=== PATIENT | male | born 1970 | race Caucasian/White ===

== ENCOUNTER 2017-07-06 07:21 | Inpatient (IN) | payer OTHER ==
[~2017-07-06] VITALS: Ht 175.3 cm; Wt 79.4 kg
[2017-07-06] MEDS ORDERED: NATURE'S BLEND F1 MG PO (07:39)
[2017-07-06] MEDS ORDERED: LASIX40 MG PO (07:40)
[2017-07-06] MEDS ORDERED: NITROSTAT0.4 MG SL (07:40)
[2017-07-06] MEDS ORDERED: XIFAXAN550 M1 PO (07:41)
[2017-07-06] MEDS ORDERED: GOOD SENSE OMEP20 MG PO (07:41)
[2017-07-06] MEDS ORDERED: SPIRONOLACTONE100 MG PO (07:41)
[2017-07-06] MEDS ORDERED: B-1100 MG PO (07:42)
[2017-07-06] MEDS ORDERED: CAPSAICIN0.075% TOP (07:44)
[2017-07-06 08:54] LABS: BASOPHIL % 0.3 % (0-2)
[2017-07-06 08:59] LABS: RED CELL DISTRIBUTION WIDTH 17.8 % (11.5-14.5)
[2017-07-06 09:03] LABS: CALCIUM 8.4 mg/dL (8.5-10.1); CARBON DIOXIDE 24.6 mmol/L (21-32); CHLORIDE SERUM 108 mmol/L (98-107); CREATININE SERUM 0.9 mg/dL (0.7-1.3); GFR1 > 60 mL/min; GLUCOSE SERUM 103 mg/dL (74-106); POTASSIUM SERUM 4.6 mmol/L (3.5-5.1); SODIUM SERUM 138 mmol/L (136-145)
[2017-07-06 09:08] LABS: ALKALINE PHOSPHATASE 119 U/L (46-116); ALT/SGPT 46 U/L (16-63); AST/SGOT 90 U/L (15-37); BILIRUBIN TOTAL 2.22 mg/dL (0.20-1.00); CHOLESTEROL 138 mg/dL (<200)
[2017-07-06 09:11] LABS: ALBUMIN 2.7 g/dL (3.4-5.0)
[2017-07-06 09:47] LABS: PLATELET COUNT 45 x10^3mcL (130-400)
[2017-07-06 11:12] VITALS: BP 119/53
[2017-07-06 13:40] VITALS: BP 104/66
[2017-07-06 18:23] VITALS: BP 126/59
[2017-07-06 21:06] VITALS: BP 106/53
[2017-07-07 05:21] VITALS: BP 109/63
[2017-07-07 06:04] LABS: BASOPHIL % 0.5 % (0-2)
[2017-07-07 06:28] LABS: RED CELL DISTRIBUTION WIDTH 18.1 % (11.5-14.5)
[2017-07-07 06:31] LABS: CARBON DIOXIDE 23.3 mmol/L (21-32); CHLORIDE SERUM 106 mmol/L (98-107); GFR1 > 60 mL/min; GLUCOSE SERUM 94 mg/dL (74-106); SODIUM SERUM 137 mmol/L (136-145)
[2017-07-07 08:24] LABS: PLATELET COUNT 42 x10^3mcL (130-400)
[2017-07-07 09:43] VITALS: BP 113/68
[2017-07-07 13:09] VITALS: BP 122/75
[2017-07-07 18:24] VITALS: BP 137/63
[2017-07-07 23:13] VITALS: BP 119/64
[2017-07-07 23:45] LABS: microscopic required? NO
[2017-07-08 00:22] LABS: urine erythrocyte NEGATIVE (NEGATIVE)
[2017-07-08 06:06] VITALS: BP 109/56
[2017-07-08 06:19] LABS: CALCIUM 8.2 mg/dL (8.5-10.1); CARBON DIOXIDE 24.3 mmol/L (21-32); CHLORIDE SERUM 103 mmol/L (98-107); GFR1 > 60 mL/min; GLUCOSE SERUM 90 mg/dL (74-106); POTASSIUM SERUM 4.2 mmol/L (3.5-5.1); SODIUM SERUM 134 mmol/L (136-145)
[2017-07-08 06:36] LABS: BASOPHIL % 0.5 % (0-2)
[2017-07-08 06:37] LABS: RED CELL DISTRIBUTION WIDTH 18.5 % (11.5-14.5)
[2017-07-08 09:37] LABS: PLATELET COUNT 40 x10^3mcL (130-400)
[2017-07-08 10:10] VITALS: BP 124/69
[2017-07-08 13:28] VITALS: BP 124/69
[2017-07-08 14:12] VITALS: BP 109/61
== END 2017-07-08 18:05 | disposition other institution (70) | DRG 441 ==
LOC: ED 07:21 → DU 09:40
PROVIDERS: Emergency Medicine; Internal Medicine Gastroenterology; ADMIT Internal Medicine
DX: K72.90 Hepatic failure, unspecified without coma (principal); G93.41 Metabolic encephalopathy; K65.2 Spontaneous bacterial peritonitis; R18.8 Other ascites; B18.2 Chronic viral hepatitis C; I10 Essential (primary) hypertension; K74.60 Unspecified cirrhosis of liver; D64.9 Anemia, unspecified; R06.89 Other abnormalities of breathing; Z88.8 Allergy status to other drugs, medicaments and biological substances; E86.0 Dehydration
CPT/HCPCS: 83880; G0480; J2270; J2550

== ENCOUNTER 2017-08-14 01:59 | Inpatient (IN) | payer OTHER ==
[~2017-08-14] VITALS: Ht 175.3 cm; Wt 83.7 kg
[~2017-08-14 01:59] MED LIST: B-1100 MG PO; CAPSAICIN0.075% TOP; GOOD SENSE OMEP20 MG PO; LASIX40 MG PO; NATURE'S BLEND F1 MG PO; NITROSTAT0.4 MG SL; SPIRONOLACTONE100 MG PO; XIFAXAN550 M1 PO
--- NOTE | 2017-08-14 02:17 | NUR ---
BIB MEDIC S/P ALOC. PT WITH HX OF HEPATIC ENCEPHALOPATHY AND CURRENTLY REFUSES TO TAKE MEDICATION IN RETIREMENT. RETIREMENT ATTEMPTING TO GET A COURT ORDER TO FORCE PT TO TAKE HIS MEDS DUE TO FREQUENCY OF HOSPITAL ADMITS SECONDARY TO ENCEPHALOPATHY. LUNGS CTA. ABD SOFTM, SUPPLE, NON-TENDER DISTRESS. MARIN. PRESENTS IN CUSTODY -[facility]. OFFICER PREM AND OFFICER DISHA.
[2017-08-14 02:30] LABS: RED CELL DISTRIBUTION WIDTH 14.4 % (11.5-14.5)
[2017-08-14 02:34] LABS: PLATELET COUNT 56 x10^3mcL (130-400)
--- NOTE | 2017-08-14 02:35 | NUR ---
IV ESTABLISHED, LAB DRAWN AND SENT. FC PLACED, URINE SENT. COMFORT MEASURES AND SUPPORTIVE CARE INITIATED. TO CONTINUE PLANF OF CARE.
[2017-08-14 02:42] LABS: CALCIUM 8.4 mg/dL (8.5-10.1); CARBON DIOXIDE 23.9 mmol/L (21-32); CHLORIDE SERUM 111 mmol/L (98-107); GFR1 > 60 mL/min; GLUCOSE SERUM 100 mg/dL (74-106); POTASSIUM SERUM 4.4 mmol/L (3.5-5.1); SODIUM SERUM 140 mmol/L (136-145)
[2017-08-14 02:48] LABS: ALBUMIN 2.6 g/dL (3.4-5.0); ALKALINE PHOSPHATASE 172 U/L (46-116); ALT/SGPT 63 U/L (16-63); AST/SGOT 92 U/L (15-37); BILIRUBIN TOTAL 1.41 mg/dL (0.20-1.00); TOTAL PROTEIN, SERUM 6.9 g/dL (6.4-8.2)
--- NOTE | 2017-08-14 02:59 | NUR ---
FC REMOVED DUE TO PT INCREASED AGITATION WITH CATH IN PLACE. URINAL AT BS. SUPPORTIVE CARE CONTINUED.
[2017-08-14 03:01] LABS: BAND NEUTROPHIL 0 % (0-10); BASOPHIL 0 % (0-2); MONOCYTE 6 % (0-7); SEGMENTED NEUTROPHILS 63 % (37-75); rbc morphology (normal/abnorm) NORMAL (NORMAL)
[2017-08-14 03:02] LABS: PLATELET MORPHOLOGY PLATELETS DECREASED
--- NOTE | 2017-08-14 03:09 | NUR ---
PO LACTULOSE ATTEMPTED. PT SHITTING. STRONGLY ENCOURAGED PT TO DRINK LACTULOSE. TO INFORM ERMD FOR NECESSITY FOR NGT.
--- NOTE | 2017-08-14 03:25 | NUR ---
CONTINUED CARE ENDORSED TO SALBADOR BONNER.
--- NOTE | 2017-08-14 03:30 | NUR ---
RECEIVED REPORT FROM ACE BONNER TO ASSUME CARE OF PT. PT RESTING IN BED, E/U RESP, NO DISTRESS NOTES. PT IN WRIST CUFFS SECURED TO WAIST, CIM OFFICERS AT BEDSIDE. WILL PLACE NGT FOR MED ADMINISTRATION.
[2017-08-14 03:32] LABS: AMPHETAMINE QUAL UR NONE DETECTED (NEG <=1000)
[2017-08-14 03:36] LABS: microscopic required? YES; urine erythrocyte TRACE (NEGATIVE)
--- NOTE | 2017-08-14 04:05 | NUR ---
PER DR EDGARD WALTER TO USE NGT, NGT PLACEMENT VERIFIED VIA XRAY.
[2017-08-14] MEDS ORDERED: LACTULOSE10 GM/152 PO (04:29)
--- NOTE | 2017-08-14 04:31 | NUR ---
MED REC REVIEWED PER [facility] OUTPATIENT PROGRESS NOTE.
--- NOTE | 2017-08-14 04:39 | NUR ---
REPORT TO IRAJ.
[2017-08-14 05:27] VITALS: BP 129/69
[2017-08-14 05:47] VITALS: BP 129/69
--- NOTE | 2017-08-14 05:48 | NUR ---
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 MEDICATED IN ER WITH LACTULOSE GIVEN VIA NGT, PATIENT REFUSING TO TAKE HIS PO MEDS ,NGT INSERTED IN ER FOR MEDICATION PURPOSES. PATIENT LETHARGIC NOT TALKING THIS TIME NO SIGN OF DISTRESS NOTED. TELE# 27 NSR/ST ON MONITOR. KEPT IN COMFORT AND BED TO LOWEST POSITION. CIM OFFICERS AT BEDSIDE. WITH ADMISSION ORDERS FROM DR JONES AND TO CARRY OUT. IV HEPLOCK TO LEFT UPPER ARM. WILL CONTINUE TO MONITOR.
--- NOTE | 2017-08-14 07:20 | NUR ---
BEDSIDE REPORT RECEIVED FROM [facility] SHIFT NURSE AT THIS TIME. PATIENT AWAKE, NO SIGNS OF DISTRESS NOTED, BREATHING EVEN AND UNLABORED, GUARDS X2 AT BEDSIDE, WILL CONTINUE TO MONITOR.
--- NOTE | 2017-08-14 07:50 | NUR ---
PATIENT AWAKE WITH EYES OPEN, COMATOSE, EYE RESPONSE SPONTANEOUS, NO RESPONSE TO VERBAL, TACTILE, OR PAINFUL STIMULI. NGT TO RIGHT NARE CLAMPED, TELE# 27, HR 87, SCD'S IN PLACE, ON ROOM AIR. IV TO DANIEL SALINE LOCKED, WNL. HAND CUFF IN PLACE TO RIGHT HAND AND RIGHT ANKLE. BED ALARM ON, CALL LIGHT WITHIN REACH, GUARDS AT BEDSIDE X2, WILL CONTINUE TO MONITOR.
[2017-08-14 09:24] VITALS: BP 133/71
--- NOTE | 2017-08-14 10:38 | NUR ---
TELEPHONE CALL TO DR JONES AT THIS TIME REGARDING DIET ORDER AND NGT USE. WILL ENTER ORDERS.
--- NOTE | 2017-08-14 11:05 | NUR ---
CALL FROM TELE MONITOR AT THIS TIME STATING PATIENT HAVING PVC'S. PATIENT AWAKE, NO SIGNS OF DISTRESS NOTED, WILL CONTINUE TO MONITOR.
--- NOTE | 2017-08-14 11:07 | NUR ---
PATIENT AWAKE, ALERT, TRACKS MOVEMENT WITH EYES, BLINKING, SWALLOWING, COUGHING OCCASIONALLY. PATIENT GROANS THAT HE WANTS TO USE THE BATHROOM, PATIENT OFFERED BEDPAN, NURSE AID AT BEDSIDE, PATIENT UNABLE TO VOID, HAVE BM. IV TO DANIEL PATENT, WNL, D5 1/2 NS STARTED AT 75 ML/HR PER MD ORDER. GUARDS X2 AT BEDSIDE, WILL CONTINUE TO MONITOR.
--- NOTE | 2017-08-14 12:41 | NUR ---
PATIENT AWAKE, ALERT, SITTING UP IN BED, NO SIGNS OF DISTRESS NOTED. TRACKS MOVEMENT WITH EYES, GRUNTS AND MOANS OCCASIONALLY, PER GUARDS PATIENT TRIES TO GET UP TO USE RESTROOM AND REFUSES TO USE URINAL. PATIENT EDUCATED ON FALL PREVENTION, NO INDICATION OF LEARNING. WILL CONTINUE TO MONITOR, GUARDS AT BEDSIDE X2 WILL CONTINUE TO MONITOR.
--- NOTE | 2017-08-14 12:48 | NUR ---
DR JONES MADE AWARE OF PVC'S, NO NEW ORDERS, WILL CONTINUE TO MONITOR.
--- NOTE | 2017-08-14 12:57 | NUR ---
PATIENT AWAKE, URINATED 400 ML IN URINAL, UNABLE TO RECALL NAME, PLACE, OR DATE. NGT TAKEN OUT BY PATIENT, DR JONES MADE AWARE, STATED PATIENT OK TO TRY FULL LIQUID DIET AND IF HE DOES NOT TOLERATE IT THE NGT MAY BE REINSERTED. WILL CONTINUE TO MONITOR.
--- NOTE | 2017-08-14 14:06 | NUR ---
PATIENT AWAKE, ALERT, SITTING UP IN BED. ABLE TO TAKE PO MEDICATION WITHOUT COUGHING OR SIGNS OF CHOKING. UNABLE TO RECALL NAME, PLACE, OR DATE. REORIENTED NEEDED, GUARDS X2 AT BEDSIDE, WILL CONTINUE TO MONITOR.
[2017-08-14 14:30] VITALS: BP 129/70
[2017-08-14 16:46] VITALS: BP 121/75
--- NOTE | 2017-08-14 17:18 | NUR ---
PATIENT AWAKE, ALERT, NO SIGNS OF DISTRESS NOTE, ABLE TO SWALLOW MEDICATION WITHOUT COUGHING OR CHOKING (SEE EMAR). ASSISTED WITH HYGIENE FOR VOID X1 THAT MISSED THE URINAL, ABLE TO TURN AND REPOSITION SELF. ABLE TO FOLLOW SIMPLE COMMANDS, ABLE TO TURN AND REPOSITION SELF INDEPENDENTLY, ALL SAFETY MEASURES IN PLACE, GUARDS X2 AT BEDSIDE, WILL CONTINUE TO MONITOR.
--- NOTE | 2017-08-14 19:33 | NUR ---
BEDSIDE REPORT GIVEN TO NOC SHIFT NURSE AT THIS TIME. IV STARTED TO LAC DUE TO IV AT DANIEL INFILTRATION, WILL ENDORSE CARE.
--- NOTE | 2017-08-14 19:38 | NUR ---
SHIFT REASSESSMENT DONE.PATIENT ALERT AND ANSWRES QUESTIONS WELL NOW.BREATHING EASY.NO MORE NGT.SWALLOWS MEDS REPORTED.GEN WEAKNESS,HAS 2 SECURITY OFFICERS AT BEDSIDE FOR SAFETY.IVF D5I/2 NS AT 75 CC/HOUR NEWLY IV INSERTED BY LINDA.TELE 27 SR.SKIN INTACT.BLE EDMA NOTED.CALL LIGHT IN REACH.
[2017-08-14 20:37] VITALS: BP 120/71
--- NOTE | 2017-08-14 22:16 | NUR ---
PATIENT WANTING PAIN MED,TYLENOL SCANNED BUT REFUSED IT.WILL GIVE MORPHINE ORDERED.
--- NOTE | 2017-08-14 22:57 | NUR ---
PATIENT HAS HX OF METH USE,THC,WANTING PAIN SHOT,TYLENOL NOT GIVEN,HAS CIRRHOSIS.SETTLED FOR PHENERGAN IVP AT THIS TIME.PATIENT REMAINS ON FULL LIQUID DIET.
--- NOTE | 2017-08-14 23:00 | NUR ---
PATIENT IS ALERT AND ORIENTED NOW.NOT ALTERED ANYMORE.2 SECURITY OFFICERS AT BEDSIDE FOR SAFETY.USING URINAL AT BEDSIDE.
--- NOTE | 2017-08-15 03:28 | NUR ---
GIVEN DON,SAYS HE IS READY FOR SOLID FOOD.WILL NOTIFY DR JONES IN AM.
[2017-08-15 05:16] VITALS: BP 106/53
--- NOTE | 2017-08-15 06:15 | NUR ---
I AND O MEASUTRED.PATIENT VOIDING WELL URINAL.REMAINS ON CONTACT ISOLATION NARES HX.2 SECURITY OFFICERS AT BEDSIDE FOR SAFETY.
--- NOTE | 2017-08-15 07:50 | NUR ---
RECEIVED PATIENT SITTING UP IN BED AAOX4, ABLE TO COMMUNICATE AND FOLLOW COMMANDS, TELE#[address] AND DENIES CHEST PAIN. PALPABLE PULSES TO BUE/BLE, SCDS IN PLACE. ON ROOM AIR DENIES SOB AND RESPIRAITONS EVEN AND UNLABORED. DENIES N/V/D. VOIDS USING URINAL. DENIES PAIN. IV TO LFA CDI AND INFUSING D5 1/2 NS AT 75ML/HR. CALL LIGHT WITHIN REACH, TWO CORRECTIONAL OFFICERS AT BEDSIDE, WILL CONTINUE TO MONITOR.
--- NOTE | 2017-08-15 09:50 | NUR ---
MADE AWAR PATIENT TOLERATING FULL LIQUID, SAID HE WILL ORDER LOW PROTEIN DIET, WILL CONTINUE TO MONITOR.
[2017-08-15 09:57] VITALS: BP 106/63
--- NOTE | 2017-08-15 10:44 | NUR ---
PATIENT MADE AWARE PATIENT NEEDS TO BE NPO UNTIL PATIENT GETS ABD ULTRASOUND, ALL QUESTIONS AND CONCERNS ADDRESSED, CALL LIGHT WITHIN REACH, TWO CORRECTIONAL OFFICERS AT BEDSIDE, WILL CONTINUE TO MONITOR.
--- NOTE | 2017-08-15 11:07 | NUR ---
IVF D/C PER DOCTORS ORDER, WILL CONTINUE TO MONITOR.
[2017-08-15 13:36] VITALS: BP 101/52
--- NOTE | 2017-08-15 15:42 | NUR ---
PATIENT RECEIVING ABD ULTRASOUND AT BEDSIDE, WILL CONTINUE TO MONITOR.
[2017-08-15 16:46] VITALS: BP 107/63
--- NOTE | 2017-08-15 17:59 | NUR ---
Initial Nutrition Assessment Dx:Hepatic encephalopathy, ALOC PMHx: ESLD, Schizoaffective, PNA, Cirrhosis, Chronic renal insufficiency PSHx:None Labs: (08/14): Alb:2.1L, Ammonia:198H (08/14) Ca:8.4L, T bili:1041H, AST:92H, WBC:4.4L, H/H:12.8/38L Meds: Aldactone, Folic acid, Lasix, Phenegran, Prilosec, Vitamin B1, Cephulac Diet:Full liquid . Pt advanced to regular diet PO Intake: (08/14) NPO (08/15) Full liquid B:100%, L:100% Ht: 69in, 5'9" Wt: 178#,81kg BMI:26.4kg/m2 (overweight) IBW: 160#,73kg %IBW: 111% UBW:170-180# Age:46y/o male Food Allergies:NKFA Skin:intact Theodore:13 Edema:+2 pitting edema to BLE GI: active bowel sounds Last BM:08/14 Nutrition Consult: low protein diet Pt admitted with AMS, metabolic encephalopathy, schizoaffective disorder, anemia and polysubstance abuse. Pt refused taking medications at [facility] and became more confused. Mulitple workups done and ammonia level significantly elevated. NF tube placed and pt was admitted to telemetry. During visit, oserved pt laying in bed. Pt reports to being hungry but is on a full liquid diet. Left dietary recommendations in pt's folder. Problem with: N: No V: No D: No C:No Problems with: Chewing:No Swallowing: No Current appetite: Good Recent wt change:None %wt change:N/A Vitamin/Supplement use: folic acid, Thiamine Special diet at home:Regular Physical activity: Walking Education: pt declined nutrition education at this time. Estimated Nutritional Needs Based on actual body weight 81kg Energy: 2430-2835kcal/d (30-35kcal/lg for chronic cirrhosis) Protein:48-65g/d (0.6-0.8g/kg for elevated ammonia levels) Fluid:2430 ml/d (30 ml/kg for maintenance) or per doctor Nutrition Diagnosis 1. Altered nutrition labs related to ESLD as evidenced by elevated ammonia:198 Intervention 1. Recommend Regular diet with 50g protein restriction due to pt with elevated ammonia levels. Monitor/Evaluate Goal: PO intake at least 75% of estimated needs Monitor: PO intake, diet advancement, Labs, GI function F/U in 2-3 days as high riskL:08/17-
--- NOTE | 2017-08-15 18:03 | NUR ---
1. Recommend Regular diet with 50g protein restriction due to pt with elevated ammonia levels.
--- NOTE | 2017-08-15 18:20 | NUR ---
PATIENT SITTING UP IN BED AAOX4, TOLERATED DIET, DENIES N/V/D, NO DISTRESS NOTED, SALINE LOCK TO LFA WITH IV CDI, DENIES PAIN, TWO CORRECTIONAL OFFICERS AT BEDSIDE, CALL LIGHT WITHIN REACH, AND WILL ENDORSE TO NIGHT NURSE.
--- NOTE | 2017-08-15 19:45 | NUR ---
PT A/O X4, ABLE TO MAKE MAKE NEEDS KNOWN. TELE #27, NSR AT 99 WITH ELEVATED TWAVE, DENIES CHEST PAIN. PULSES PALPABLE, TRACE EDEMA NOTED TO BLE. LUNG SOUNDS CTA, BREATHING FREELY ON RA, PT DENIES SOB. ABD SOFT AND NONDISTENDED, BOWEL TONES ACTIVE, DENIES N/V. VOIDS USING A URINAL. GENERALIZED WEAKNESS. BSC AT BEDSIDE. SKIN IS WNL. DENIES PAIN AT THIS TIME. SALINE LOCK TO LFA, PATENT AND INTACT. BED IN LOWEST SETTING, SIDE RAILS UP X2, CALL LIGHT WITHIN REACH. OFFICERS AT BEDSIDE. WILL CONTINUE TO MONITOR.
[2017-08-15 21:19] VITALS: BP 129/65
[2017-08-16] VITALS (9 sets, daily range): BP systolic 101–164; BP diastolic 32–86
--- NOTE | 2017-08-16 01:00 | NUR ---
PT ASLEEP, BUT EASILY AROUSABLE. BREATHING IS EVEN AND UNLABORED. NO RESP DISTRESS NOTED, NO SIGNS OF PAIN OBSERVED. GUARDS AT BEDSIDE. CALL LIGHT WITHIN REACH. WILL CONTINUE TO MONITOR.
--- NOTE | 2017-08-16 06:30 | NUR ---
PT SLEPT WELL THROUGHOUT THE NIGHT. BREATHING IS EVEN AND UNLABORED, NO RESP DISTRESS NOTED. NO SIGNS OF PAIN OBSERVED. IV ABX INFUSING AT THIS TIME TO LFA. CALL LIGHT WITHIN REACH. GUARDS AT BEDSIDE. WILL ENDORSE CARE TO AM NURSE.
[2017-08-16 07:04] LABS: CALCIUM 7.9 mg/dL (8.5-10.1); CARBON DIOXIDE 24.7 mmol/L (21-32); CHLORIDE SERUM 106 mmol/L (98-107); CREATININE SERUM 1.1 mg/dL (0.7-1.3); GFR1 > 60 mL/min; GLUCOSE SERUM 110 mg/dL (74-106); POTASSIUM SERUM 4.4 mmol/L (3.5-5.1); SODIUM SERUM 136 mmol/L (136-145)
--- NOTE | 2017-08-16 07:34 | NUR ---
RECEIVED PT IN BED, A/A/O X 4, CALM, COOPERATIVE, 2 GUARDS BY BEDSIDE. ON TELE # 27, NSR WITH ELEVATED T-WAVES, DENIES CHEST PAIN OR DISCOMFORT. JEFF RADIAL AND PEDAL PULSES PRESENT, TRACE EDEMA TO BLE, CAP REFILL < 3 SECS, SCD IN PLACE. VOIDS FREELY, BSC BY BEDSIDE. GENERALIZED WEAKNESS, UNABLE TO ASSESS AMBULATION AT THIS TIME. IV SITE AT [facility], [facility], SALINE-LOCKED. SIDE RAILS UP X 2, BED IN LOW POSITION, CALL LIGHT WITHIN REACH. WILL CONTINUE TO MONITOR.
[2017-08-16 07:43] LABS: BASOPHIL % 0.5 % (0-2)
[2017-08-16 07:54] LABS: RED CELL DISTRIBUTION WIDTH 14.6 % (11.5-14.5)
--- NOTE | 2017-08-16 09:13 | NUR ---
DR PACKER CAME IN TO SEE PT. DR DISCUSSED PLAN OF CARE TODAY. ALL QUESTIONS WERE ANSWERED. PT VERBALIZED UNDERSTANDING.
[2017-08-16 09:33] LABS: PLATELET COUNT 43 x10^3mcL (130-400)
--- NOTE | 2017-08-16 11:05 | NUR ---
PT IN BED, RESTING COMFORTABLY, 2 GUARDS BY BEDSIDE. NO RESPIRATORY DISTRESS, PAIN, OR DISCOMFORT NOTED. WILL CONTINUE TO MONITOR.
--- NOTE | 2017-08-16 13:28 | NUR ---
WILL NOT TAKE MEDICATIONS (LACTULOSE 50 ML, NEOMYCIN TAB) D/T DECREASED LOC. TRIED GIVING MEDICATIONS BUT ONLY SPITS IT OUT. WHEN ASKED WHY HE DID IT, PT UNABLE TO RESPOND BACK. PT RESPONDS SLUGGISHLY TO NAME, PUPILS 2MM, PERRLA. NOTIFIED CHARGE NURSE, WILL NOTIFY PCP. WILL CONTINUE TO MONITOR.
--- NOTE | 2017-08-16 13:40 | NUR ---
CALLED TO AND UPDATED HIM THAT PT CONSCIOUSNESS IS DECLINIING AND UNABLE TO TAKE HIS MEDICATION ORALLY AND EVEN TAKE WATER. PT IS AWAKE BUT CAN'T COMPLETE A CONVERSATION AND VERY CONFUSED, AMMONIA LEVEL REMAINS TO BE ELEVATED. ORDERED TO GIVE LACTULOSE 50ML RECTALLY X1 AND SEE WHAT HAPPEN AFTER ADMINISTERING THE MEDICATION. MADE AWARE TOO THAT PT DIDN'T RECEIVED ANY NARCOTIC FOR HIS CONCIOUSNESS TO DECLINE. ALSO SAID IF HE IS NOT IMPROVING INSPITE OF RECTAL LACTULOSE THEN LAST RESORT IS TO PLACE AN NGTUBE. CALLED TO AND MADE HIM AWARE OF ABOVE CONVERSATION WITH . TOLD HIM THAT WILL KEEP HIM POSTED IF THE RECTAL LACTULOSE WILL BE EFFECTIVE. PAIVTHRA BONNER ASSIGNED TO THIS PT MADE AWARE OF ABOVE PLAN. WILL CONT TO MONITOR.
--- NOTE | 2017-08-16 14:20 | NUR ---
OBTAINED ORDER FROM DR PACKER FOR LACTULOSE 50 ML RECTALLY. ATTEMPTED TO ADMINISTER RECTALLY VIA SYRINGE, PT WAS BEARING DOWN/CLENCHING ANUS. WAS ABLE TO ADMINISTER ABOUT HALF OF THE MEDICATION, AND ABOUT A HALF OF THE MEDICATION THAT WENT IN CAME OUT. WILL CALL DR PACKER FOR FURTHER ORDERS.
--- NOTE | 2017-08-16 15:23 | NUR ---
CALLED AND UPDATED OF ALL THE PROCEDURE DONE FOR THE PT THAT ORDERED WAS UNSUCCESSFUL INCLUDING NGTUBE PLACEMENT. NEW ORDER RECEIVED TO TRANSFER THE PT TO HIGHER LEVEL OF CARE DUE TO WORSENING ENCEPHALOPATHY. MADE TOO TO CALL [facility] DOCTOR TSE AND UPDATED HIM OF CURRENT STATUS. CALLED TO MANDY(FRINGING MACHINE OPERATOR) AND MADE HER AWARE OF ABOVE. SPOKE TO PVAITHRA RN ASSIGNED TO THIS PT MADE AWARE OF ABOVE.
--- NOTE | 2017-08-16 15:24 | NUR ---
EXPLAINED TO PT THAT HE WILL HAVE AN NG TUBE INSERTED ORDERED, EXPLAINED R/B. USED 12FR TUBING, THROUGH. WAS ABLE TO INSERT TUBING UP TO TERMINAL POINT, WHEN PT STARTED GAGGING AND PULLED TUBE OUT. MINOR BLEEDING OBSERVED, ASKED PT TO TILT HEAD DOWN TO PREVENT ASPIRATION OF OWN BLOOD. WILL NOTIFY DR JONES THAT NG TUBE INSERTION IS UNSUCCESSFUL. WILL CONTINUE TO MONITOR PT.
--- NOTE | 2017-08-16 15:45 | NUR ---
RECEIVED A CALL FROM AND ORDERED TO TRANSFER PT TO ICU FOR INTUBATION DUE TO WORSENING ENCEPHALOPATHY. CONSULTED FOR CO-MGMT. PAVITHRA RN ASSIGNED TO THIS PT MADE AWARE OF ABOVE. UPDATED HIM OF ALL THE INTERVENTION THAT WAS ORDERED BY HIM WERE ALL UNSUCCESFUL SINCE PT WAS CONFUSED AND RESISTANT TO INTERVENTION AND CARE, MADE HIM AWARE OF PT TRANSFERRED IN ICU FOR CLOSE OBSERVATION DUE TO WORSENING ENCEPHALOPATHY. MANDY CAT BREEDER MADE AWARE OF ABOVE.
--- NOTE | 2017-08-16 15:48 | NUR ---
RECEIVED REPORT FROM PAVITHRA BONNER. PATIENT TO BE TRANSFERRED TO ICU AND INTUBATED BY DR CHAVARRIA. AWAITING PATIENT AT THIS TIME.
--- NOTE | 2017-08-16 15:50 | NUR ---
PATIENT RECEIVED ON UNIT ACCOMPANIED BY [address] CHAVARRIA. PATIENT TO BE INTUBATED. PATIENT ALERT X 2. FOLLOWS SIMPLE COMMANDS. PUPILS 3MM REACTIVE. BLEEDING NOTED FROM ORAL CAVITY. PATIENT REMOVED FROM PORTABLE PLAY READER AND PLACED ON ICU PLAY READER#2. IV TO LAC IN PLACE, UNABLE TO FLUSH. WILL INSERT NEW IV ACCESS BEFORE INTUBATING. DR CHAVARRIA AT BEDSIDE AND MADE AWARE.
--- NOTE | 2017-08-16 16:00 | NUR ---
DR CHAVARRIA CAME IN TO SEE PT, CALLED ICU TO NOTIFY THEM OF THE TRANSFER FOR INTUBATION. CALLED ICU TO GIVE REPORT TO HA CARBONE. PT TRANSFERED VIA GUERNEY ACCOMPANIED BY MYSELF, AND 2 OTHER RN. PT IS AWAKE, ALOC. ACKNOWLEDGES QUESTIONS BUT UNABLE TO RESPOND COHERENTLY. BLEEDING HAS STOPPED FROM LEFT NARES. NO RESPIRATORY DISTRESS, PAIN, OR DISCOMFORT NOTED. PT WAS MOVED TO ICU-2, WHERE HE WAS RECEIVED BY HA MEEHAN. THE 2 GUARDS FOLLOWED PT TO MAKE SURE HE IS SECURE.
--- NOTE | 2017-08-16 16:15 | NUR ---
IV ACCESS ESTABLISHED BY [facility] ED RN AT THIS TIME. #22 TO RIGHT WRIST. PORT PATENT WITH GOOD BLOOD RETURN. PATIENT TOLERATED WELL.
--- NOTE | 2017-08-16 16:28 | NUR ---
1620- PATIENT PLACED IN POSITION FOR INTUBATION BY DR CHAVARRIA. RT'S IFEOMA LYNCH AND MARTIN, RN'S ZORAN MON AND MYSELF AT PATIENT BEDSIDE. 1621- PATIENT ADMINISTERED 50 MCG PROPOFOL IVP 1622- PATIENT ADMINISTERED 10 MG ETOMIDATE IVP 1624- PATIENT ADMINISTERED 50 PROPOFOL IVP 1625- PATIENT ADMINISTERED 20 VECURONIUM IVP 1628- PATIENT INTUBATED WITH #8 ETT AT 25 LIP LINE. PATIENT PLACED ON VENT SETTINGS AC MODE RATE 12, VT 500 PEEP 5, FIO2 100%. VITALS STABLE BP 154/89, HR 115, RR 13, 02 SAT 100%. WILL CONTINUE TO MONITOR.
--- NOTE | 2017-08-16 16:30 | NUR ---
PER DR CHAVARRIA ORDER, PATIENT BOLUSED WITH 1 L NS AND PROPOFOL DRIP INTIATED AT THIS TIME TO ACHIEVE MRSS 4.
--- NOTE | 2017-08-16 16:35 | NUR ---
#16 [facility] LUCIAN NGT INSERTED TO LEFT NARE. LARGE AMOUNT OF KATELIN BLOOD NOTED IN TUBING. AUSCULTATION VIA AIR BOLUS CONFIRMED BY ZORAN BONNER. AWAITING PLACEMENT CONFIRMATION VIA XRAY AT THIS TIME.
--- NOTE | 2017-08-16 17:15 | NUR ---
USING ASEPTIC TECHNIQUE, BRICENO CATHETER INSERTED WITH YELLOW COLORED URINE RETURNED.
--- NOTE | 2017-08-16 17:47 | NUR ---
PATIENT STARTED ON SANDOSTATIN DRIP AT 50 MCG/HR. WILL CONTINUE TO MONITOR.
--- NOTE | 2017-08-16 18:25 | NUR ---
TITRATED TO 40% PER ABG RESULTS. WILL MONITOR.
--- NOTE | 2017-08-16 18:27 | NUR ---
FIO2 TITRATED TO 40% ON VENT.
--- NOTE | 2017-08-16 19:09 | NUR ---
RECEIVED REPORT FROM EVARISTO BONNER. ALL QUESTIONS AND CONCERNS ADDRESSED. WILL ASSUME PT CARE.
--- NOTE | 2017-08-16 19:25 | NUR ---
REPORT GIVEN TO ASHA BONNER. ALL QUESTIONS AND CONCERNS ADDRESSED.
--- NOTE | 2017-08-16 19:45 | NUR ---
MRSS 3. PROPOFOL TTRATED TO 10 MCH/KG/MIN. WILL CONTINUE TO MONITOR FOR ANY ACUTE CHANGES.
--- NOTE | 2017-08-16 23:10 | NUR ---
PT RESTLESS. MRSS 3. PROPOFOL TITRATED TO 20 MCG/KG/MIN. WILL CONTINUE TO MONITOR FOR ANY ACUTE CHANGES.
--- NOTE | 2017-08-16 23:10 | NUR ---
PT SLEEPING IN POSITION OF COMFORT. VS STABLE. CHEST RISE IS EQUAL AND SYMMETRICAL. NO S/S OF PAIN OR DISTRESS NOTED. HOB AT 30 DEGREES. BED IN LOWEST POSITION. CALL LIGHT WITHIN REACH. WILL CONTINUE TO MONITOR FOR ANY ACUTE CHANGES.
[2017-08-17] VITALS (18 sets, daily range): BP systolic 104–129; BP diastolic 54–78
--- NOTE | 2017-08-17 02:02 | NUR ---
TUBE FEEDING INITIATED AT THIS TIME. NUTRIHEP AT 10 ML/HR WITH FWF OF 50 ML Q4H. WILL CONTINUE TO MONITOR FOR ANY ACUTE CHANGES.
--- NOTE | 2017-08-17 03:52 | NUR ---
MRSS 3. PT RESTLESS. PROPOFOL TITRATED TO 30 MCG/KG/MIN. WILL CONTINUE TO MONITOR FOR ANY ACUTE CHANGES.
[2017-08-17 05:19] LABS: BASOPHIL % 0.3 % (0-2)
[2017-08-17 05:33] LABS: CALCIUM 7.4 mg/dL (8.5-10.1); CARBON DIOXIDE 19.5 mmol/L (21-32); CHLORIDE SERUM 111 mmol/L (98-107); GFR1 > 60 mL/min; GLUCOSE SERUM 131 mg/dL (74-106); POTASSIUM SERUM 3.8 mmol/L (3.5-5.1); SODIUM SERUM 140 mmol/L (136-145)
--- NOTE | 2017-08-17 07:26 | NUR ---
REPORT GIVEN TO MIN RN. ALL QUESTIONS AND CONCERNS ADDRESSED. WILL ENDORSE PT CARE.
--- NOTE | 2017-08-17 07:35 | NUR ---
DR PACKER AT BEDSIDE TO ASSESS PATIENT. UPDATES PROVIDED BY NURSING. NEW ORDERS RECEIVED. WILL CARRY OUT ORDERS. WILL CONTINUE TO MONITOR.
--- NOTE | 2017-08-17 08:04 | NUR ---
PATIENT TO HAVE URINE CULTURE. BRICENO CLAMPED AT THIS TIME. PRIMARY RN MIN MADE AWARE.
--- NOTE | 2017-08-17 08:38 | NUR ---
BRICENO UNCLAMPED AND URINE COLLECTED FOR URINE CULTURE. WILL SEND TO LAB. PT RECIEVING A BREATHING TX, TOLERATING WELL.
--- NOTE | 2017-08-17 08:46 | NUR ---
USING ASEPTIC TECHNIQUE, RIGHT FEMORAL CENTRAL LINE DRESSING CHANGE COMPLETED. PATIENT TOLERATED WITH NO S/S OF DISTRESS OR DISCOMFORT.
--- NOTE | 2017-08-17 09:18 | NUR ---
LISY RN AND TRANSPORT TEAM AND IFEOMA RT WILL BE TRANSFERRING PT TO CT OF HEAD VIA BED WITH VENT. TUBE FEEDING IS TURNED OFF. AWAITING FOR PT TO COME BACK.
[2017-08-17 09:21] LABS: PLATELET COUNT 49 x10^3mcL (130-400)
--- NOTE | 2017-08-17 10:00 | NUR ---
PT BACK ONTO UNIT. AC MODE IS SAME AND TUBE FEEDING IS BACK ON. BED AT LOW AND CALL LIGHT WITHIN REACH. 2 GAURDS ARE AT BEDSIDE.
--- NOTE | 2017-08-17 11:00 | NUR ---
IFEOMA RT SWITCH VENT SETTING FROM AC MODE TO CPAP PT IS TOLERATING WELL. NO SIGNS OF ACUTE DISTRESS 100%OSAT. TUBE TUBING OFF
--- NOTE | 2017-08-17 11:00 | NUR ---
DR. CHAVARRIA AT BEDSIDE ASSESSING AND UPDATE PLAN OF CARE.
--- NOTE | 2017-08-17 18:15 | NUR ---
RT IFEOMA SWITCHED VETN SETTING TO AC MODE 30% FIO, RATE 12 VT 500 PEEP 5. HR 109 TIATRATE VERDED TO 2MG/HR TO R FEMORAL.
--- NOTE | 2017-08-17 19:30 | NUR ---
RECEIVED REPORT FROM HA CHAMBERS. ALL QUESTIONS AND CONCERNS ADDRESSED.
[2017-08-18] VITALS (17 sets, daily range): BP systolic 105–129; BP diastolic 53–83
[2017-08-18 05:33] LABS: BASOPHIL % 0.5 % (0-2)
[2017-08-18 05:41] LABS: RED CELL DISTRIBUTION WIDTH 15.3 % (11.5-14.5)
[2017-08-18 05:43] LABS: PLATELET COUNT 49 x10^3mcL (130-400)
[2017-08-18 05:44] LABS: CALCIUM 7.4 mg/dL (8.5-10.1); CARBON DIOXIDE 26.6 mmol/L (21-32); CHLORIDE SERUM 111 mmol/L (98-107); CREATININE SERUM 0.9 mg/dL (0.7-1.3); GFR1 > 60 mL/min; GLUCOSE SERUM 117 mg/dL (74-106); POTASSIUM SERUM 3.8 mmol/L (3.5-5.1); SODIUM SERUM 142 mmol/L (136-145)
--- NOTE | 2017-08-18 07:15 | NUR ---
RECIEVED REPORT FROM ALINA BONNER AT BEDSIDE. WILL RESUME CARE.
--- NOTE | 2017-08-18 07:15 | NUR ---
RECIEVED REPORT FROM STAR BONNER AT BEDSIDE. WILL RESUME CARE.
--- NOTE | 2017-08-18 07:22 | NUR ---
REPORT GIVEN TO HA CHAMBERS. ALL QUESTIONS AND CONCERNS ADDRESSED.
--- NOTE | 2017-08-18 07:50 | NUR ---
SPOKE WITH DR PACKER AND PROVIDED PATIENT UPDATE. ALL QUESTIONS AND CONCERNS ADDRESSED. NEW ORDERS RECEIVED. ENDORSED TO PRIMARY RN MIN.
--- NOTE | 2017-08-18 08:30 | NUR ---
PT ON 2MG/HR OF VERSED AND 1MG/HR OF MORPHINE RSS 4. PT OPENS EYES TO VERBAL STIMULIS AND FOLLOWS VERBAL COMMANDS. BL PUPILS EQUAL AND REACTIVE TO LIGHT 3MM, SLUGGISH. 8.0 ETT TO VENT. NG TO L NARES SECURE. S1S2 PRESENT UPON AUSUCLATION. NO S/S OF CHEST PAIN. BS ACTIVE X4 QUADRANTS NONTENDER PALPATIONS. PT ON NUTIRHEP 30ML/HR WITH FWF 50ML// Q4HRS. 40ML OF COFFEE GROUND RESIDUALS, REPLACE BACK TO PUT. R FEMORAL CENTRAL IS INTACT AND CDI TO DRESSING. SCD TO BLE. MOD PULSES TO BUE AND BLE. METAL CUFF AROUND L ANKLE, SKIN INTACT. BED AT LOW AND CALL LIGHT WITHIN REACH.
--- NOTE | 2017-08-18 08:45 | NUR ---
DALYED TURNED OFF FOR SEDATION VACTION.
--- NOTE | 2017-08-18 10:15 | NUR ---
SYED CORNELIUS AT BEDSIDE SWITCH VENT SETTING FROM AC MODE TO CPAP.
--- NOTE | 2017-08-18 12:30 | NUR ---
PT IS ABLE TO FOLLOW VERBAL COMMANDS WITH NO SEDATIONS. PT IS TOLEATING CPAP WELL. 97%PO2SAT, VAP CARE PROVIDED. SYMMETRICAL CHEST RISE. BED AT LOW AND CALL LIGHT WTHIN REACH. 2 GAURDS AT BEDSIDE.
--- NOTE | 2017-08-18 15:26 | NUR ---
PER DR. RUSHING TO ORDER A CXR STATS AND ABD AT 1500. PER DR. RUSHING TO DECREASE NS TO 10ML/HR.
--- NOTE | 2017-08-18 15:55 | NUR ---
Follow-up Nutrition Assessment Dx:Hepatic encephalopathy and ALOC Labs: (08/18) BH, BUN:20H, Ca:7.4L, H/H:10.7/32L(08/17) Ammonia:82H, trending down Meds: Aldactone, Cephulac, Folic acid, Morphine, Phenergan, Protonix, Senokot, NS IV, Vitamin B-1 Current Nutrition Support:Nutrihep at 30ml/hr, Free water flush 50ml q4hr. TF intake:08/18:298ml I/O:08/18:2791/2100(+691ml) Resdiual: 08/18:90ml, 08/17: 210ml Weights: 08/14:178#. 08/18:179# Skin: intact Edema: trace to BLE Last BM: 08/18 Per bed huddle this morning, pt will be placed on CPAP today and will work on extubting pt within the next few days. During visit, observed pt laying in bed with TF on hold for CPAP. Per RN, pt with 40ml residuals today with no N/V/D/C with possible weaning parameters by tomorrow. Estimated Nutritional Needs unchanged from prior assessment:actual body weight 81kg Ventilator in min/L: 10.7, Temperature:37.1 MAP:78 Energy: 1923kcal/day (PSU 2003b for vent suppoort)) Protein: 49-65g/day (0.6-0.8g/kg for elevated ammonia levels ) Fluid: 2025-2433ml/day (25-30kcal/kg for maintenance) or per doctor Nutrition Diagnosis 1. Altered nutrition labs related to ESLD as evidenced by elevated ammonia:198 (ongoing but improving) Intervention 1. Recommend advance TF to goal rate of 50ml/hr, free water flush 50ml q 4hr. This provides 1980kcal, 53g protein and 1303ml free water daily. This meets 103% caloric needs and 100% protein needs. Monitor/Evaluate Previous goal: PO intake at least 75% of estimated needs Goal: TF to meet at least 80% est needs with tolerance and ammonia level WNL Monitor: TF intake/tolerance, Labs (ammonia), GI function F/U in 2-3 days as high risk: 08/20-
--- NOTE | 2017-08-18 16:12 | NUR ---
Follow-up Nutrition Assessment Dx:Hepatic encephalopathy and ALOC Labs: (08/18) BH, BUN:20H, Ca:7.4L, H/H:10.7/32L(08/17) Ammonia:82H, trending down Meds: Aldactone, Cephulac, Folic acid, Morphine, Phenergan, Protonix, Senokot, NS IV, Vitamin B-1 Current Nutrition Support:Nutrihep at 30ml/hr, Free water flush 50ml q4hr. TF intake:08/18:298ml I/O:08/18:2791/2100(+691ml) Resdiual: 08/18:90ml, 08/17: 210ml Weights: 08/14:178#. 08/18:179# Skin: intact Edema: trace to BLE Last BM: 08/18 Per bed huddle this morning, pt will be placed on CPAP today and will work on extubting pt within the next few days. During visit, observed pt laying in bed with TF on hold for CPAP. Per RN, pt with 40ml residuals today with no N/V/D/C with possible weaning parameters by tomorrow. Spoke to Dr. Crane on the phone and recommended to increase pt's goal rate to 50ml/hr and doctor is agreeable and said he will input orders when he can. Estimated Nutritional Needs unchanged from prior assessment:actual body weight 81kg Ventilator in min/L: 10.7, Temperature:37.1 MAP:78 Energy: 1923kcal/day (PSU 2003b for vent suppoort)) Protein: 49-65g/day (0.6-0.8g/kg for elevated ammonia levels ) Fluid: 5-2433ml/day (25-30kcal/kg for maintenance) or per doctor Nutrition Diagnosis 1. Altered nutrition labs related to ESLD as evidenced by elevated ammonia:198 (ongoing but improving) Intervention 1. Recommend advance TF to goal rate of 50ml/hr, free water flush 50ml q 4hr. This provides 1980kcal, 53g protein and 1303ml free water daily. This meets 103% caloric needs and 100% protein needs. Monitor/Evaluate Previous goal: PO intake at least 75% of estimated needs Goal: TF to meet at least 80% est needs with tolerance and ammonia level WNL Monitor: TF intake/tolerance, Labs (ammonia), GI function F/U in 2-3 days as high risk: 08/20-
--- NOTE | 2017-08-18 19:58 | NUR ---
RECEIVED PT SEDATED ON MORPHINE AT 1 MG/H AND VERSED 2MG/H WITH MRSS 3 FOLLOWING COMMANDS;UNCOOPERATIVE ATTEMPTING TO REACH FOR TUBES WITH BILATERAL SOFT WRIST RESTRAINTS FOR SAFETY,PROTOCOL FOLLOWED.INTUBATED ORALLY ON AC MODE FIO2 25% TV 500 RATE 12 PEEP 5 RR 16 O2 SAT 97%.ETT#8 LL25 MM.LEFT NARES NGT WITH NUTRIHEP 20 ML/H WITH FWF 50 Q 4H WITH 250 ML RESIDUAL FEEDING HELD.RIGHT FEMORAL TLC CENTRAL LINE WITH NS AT 50 ML/H AND SANDOSTATIN 15 MG/H INFUSING WELL.BRICENO CATHETER TO GRAVITY DRAINAGE BAG.ORAL CARE PER VAP PROTOCOL AND BED ON LOW POSITION WITH CALL LIGHT WITHIN REACH.CIM GUARDS AT BEDSIDE.
--- NOTE | 2017-08-18 23:39 | NUR ---
REMAINS SEDATED WITH RSS 3 MORPHINE AT 1 MG/H AND VERSED AT 2 MG/H.CARDIAC SCOPE SHOWS SR WITH NO ECTOPIES.ON SAME VENT SETTING MAINTAINING O2 SAT 98% RR 13 WITH MINIMAL SECREATIONS VIA ETT.LEFT NARES NGT PATENT WITH NUTRIHEP FEEDING AT 10 ML/H RESIDUAL 30 ML INCREASED FEEDING TO 20 ML/H HOB ELEVATED. STILL ON BILATERAL SOFT WRIST RESTRAINTS FOR SAFETY,ATEMPTING TO REACH FOR ETT WHEN RELEASED.REPOSITIONED TO LEFT SIDE WITH PILLOW SUPPORT ON BACK.CIM GUARDS AT BEDSIDE.
[2017-08-19] VITALS (14 sets, daily range): BP systolic 111–140; BP diastolic 52–91; Ht 175.3 cm; Wt 83.7 kg
--- NOTE | 2017-08-19 03:30 | NUR ---
REMAIS SEDATED WITH PERIODS OF AGITATION.WITH BILATERAL SOFT WRIST RESTRAINTS FOR SAFETY PT ATTEMPTING TO PULL ON TUBES;PROTOCOL FOLLOWED.SCOPE SHOWS SR HR 98 NO ECTOPIES.ON SAME VENT SETTING O2 SAT 99% RR 12.LEFT NARES NGT PATENT WITH NUTRIHEP RESIDUAL 20 ML INCREASED FEEDING TO 30 ML/H GOAL RATE WITH FWF 50 Q 4H HOB ELEVATED.BRICENO DRAINING PINK COLORED URINE ADEQUATE AMOUNT.BED ON LOW POSITION WITH CALL LIGHT WITHIN REACH.REPOSITIONED TO SIDES.GUARDS AT BEDSIDE.
[2017-08-19 05:27] LABS: BASOPHIL % 0.3 % (0-2)
[2017-08-19 05:35] LABS: PLATELET COUNT 53 x10^3mcL (130-400); RED CELL DISTRIBUTION WIDTH 15.1 % (11.5-14.5)
[2017-08-19 05:53] LABS: CALCIUM 7.5 mg/dL (8.5-10.1); CARBON DIOXIDE 27.3 mmol/L (21-32); CHLORIDE SERUM 110 mmol/L (98-107); CREATININE SERUM 0.9 mg/dL (0.7-1.3); GFR1 > 60 mL/min; GLUCOSE SERUM 125 mg/dL (74-106); POTASSIUM SERUM 4.5 mmol/L (3.5-5.1); SODIUM SERUM 138 mmol/L (136-145)
--- NOTE | 2017-08-19 07:20 | NUR ---
VERSED IS TURNED OFF.
--- NOTE | 2017-08-19 09:27 | NUR ---
PATIENT ROUNDS WITH DR. VENCES AND RESIDENTS. CHARGE NURSE AND PRIMARY NURSE AT BEDSIDE. UPDATES PROVIDED AND POC DISCUSSED. WILL CONTINUE TO MONITOR.
--- NOTE | 2017-08-19 11:58 | NUR ---
PT DISPLACED ETT BY TUGGING AT IT, LPM 22. RT RANDA IS NOTIFY AND CXR IS ORDERED TO ADJUST PLACEMENT OF ETT TUBE. NO SIGNS OF DISTRES OR SOB.
--- NOTE | 2017-08-19 12:05 | NUR ---
JUAN CORNELIUS ADJUSTED LIP LINE TO 25 AND CXR AT BEDSIDE.
--- NOTE | 2017-08-19 14:35 | NUR ---
Follow-up Nutrition Assessment- Dx: hepatic encephalopathy and ALOC. Labs: (08/19/17) Na 138, K 4.5, Glucose 125 H, BUN 27 H, Cr 0.9, Calcium 7.5 L, Hgb 11.3 L, Hct 33 L, Ammonia 39 H (improving). Meds: aldactone, folic acid, Lasix, morphine sulfate in sodium chl 0.9%. Current Nutrition Support: Enteral feeding via nasogastric tube, Nutrihep at 30 mL/hr to provide 1080 kcal, 28.8 gm protein, 547 mL. Free water flush 50 mL every 4 hours to provide 500 mL. Weights: 08/19/17: 184 pounds. 08/18/17: 179 pounds. 08/14/17: 178-179 pounds. Skin: Intact Edema: BLE Last BM: 1 x 08/18/17 I/O: (08/19/17) 2260/1850 (+410) TF residual: 08/19/17 40 mL Pt seen in bed, TF on hold for CPAP trials per nursing. Per RN, TF Nutrihep was running at 30 mL/hr, with 40 mL residuals, BM yesterday, no N/V/D/C. Per progress note (08/18/17), patient remains on morphine drip, tolerating CPAP, no distress; plan states to continues on mechanical ventilation, may start CPAP trial, sedation to be held, may obtain weaning parameters. Estimated Nutritional Needs unchanged from prior assessment: Energy: 1923 kcal/day (PSU 2003b for vent support) Protein: 49-65 gm/day (0.6-0.8 g/kg for elevated ammonia levels) Fluid: 9465-9713 mL/day (25-30 mL/kg for maintenance) or per MD Nutrition Diagnosis 1. Altered nutrition-related lab values related to ESLD as evidenced by ammonia: 39 (ongoing but improving). 2. Inadequate enteral infusion related to current enteral feeding order as evidenced by current enteral feeding order meeting 56% estimated kcal need and 58% estimated protein needs. Intervention/RDN Recommendation(s): 1. If unable to extubate, considering increasing enteral feeding to Nutrihep at 50 mL/hr to provide 1800 kcal, 82 gm protein, 912 mL free water. 2. If able to extubate, consider bedside swallow evaluation per speech therapist to determine diet textures. 3. If able to extubate, consider ADAN diet with diet texture restriction per speech therapist. 4. Recommend daily weights to assess trends. Monitor/Evaluate Goal: Intake via nutrition support to meet least 75% of estimated needs. Monitor: Nutrition support tolerance, Labs, GI function F/U in 2-3 days as high risk (08/21-08/25).
--- NOTE | 2017-08-19 17:30 | NUR ---
YOVANA CORNELIUS AT BEDSIDE TO EXTUBATE PT. PT WAS SUCTIONED BEFORE AND AFTER EXTUBATE. PT ON 2L O2 VIA NASAL CANNULA.
--- NOTE | 2017-08-19 19:16 | NUR ---
RECEIVED REPORT FROM REYES BONNER. UPDATES PROVIDED. WILL ASSUME PT CARE.
--- NOTE | 2017-08-19 21:15 | NUR ---
ASSESSED PT SWALLOWING WITH ICE CHIPS AND JELLO. PT TOLERATED WELL, NO DIFFUCULTY NOTED. WILL CONTINUE TO MONITOR FOR ANY ACUTE CHANGES.
--- NOTE | 2017-08-19 23:10 | NUR ---
PT IS RESTING IN POSITION OF COMFORT. CHEST RISE IS EQUAL AND SYMMETRICAL. BREATHING IS EVEN AND UNLABORED. VS STABLE. NO S/S OF PAIN OR DISTRESS NOTED. HOB AT 45 DEGREES. CALL LIGHT WITHIN REACH. WILL CONTINUE TO MONITOR FOR ANY ACUTE CHANGES.
[2017-08-20] VITALS (7 sets, daily range): BP systolic 98–113; BP diastolic 48–60
--- NOTE | 2017-08-20 01:20 | NUR ---
PT IS C/O GENERALIZED PAIN. INFORMED PT THAT LAST TYLENOL WAS GIVEN AT 2240 AND IS PRN Q4H. PT EASILY AGITATED BUT VERBALIZED UNDERSTANDING. WILL CONTINUE TO MONITOR FOR ANY ACUTE CHANGES.
--- NOTE | 2017-08-20 04:14 | NUR ---
PT IS RESTING IN POSITION OF COMFORT. CHEST RISE IS EQUAL AND SYMMETRICAL. VS STABLE. HOB AT 30 DEGREES. CALL LIGHT WITHIN REACH. BED IN LOWEST POSITION. WILL CONTINUE TO MONITOR FOR ANY ACUTE CHANGES.
--- NOTE | 2017-08-20 07:15 | NUR ---
REPORT GIVEN TO ELIESER BONNER. ALL QUESTIONS AND CONCERNS ADDRESSED. WILL ENDORSE PT CARE.
--- NOTE | 2017-08-20 07:30 | NUR ---
PT IS AOX4. RESPONDS TO COMMANDS. PERRLA, 2MM BRISK. PT IS BREATHING E/U ON ROOM AIR. LUNG SOUNDS ARE CLEAR BILATERALLY. S1 S2 HEART SOUNDS AUSCULTATED. NSR, HR = 94. DENIES CP. PULSES ARE MODERATE BILATERALLY. CAP REFILL < 3 S. SKIN IS WARMA ND PINK. TRACE EDEMA TO BLE. R FEM CVC INTACT, PORTS PATENT, DRESSING CDI. NS INFUSING @ 20 CC/HR. ABD IS SOFT AND ROUNDED. BOWEL SOUNDS ACTIVE X4Q. DENIES N/V/D. BRICENO INTACT AND DRAINING VIA GRAVITY. URINE IS URSZULA, FAIR OTUPUT. C/O 10/10 PAIN BUT DOES NOT APPEAR TO BE IN DISTRESS, FLACC = 0. PT LATER STS THAT HE JUST WANTS TO FEEL HIGH AND DOESN'T CARE ABOUT THE PAIN. HOB ELEVATED, BED LOW, SIDE RAILS UP X3, CALL LIGHT IN REACH. WILL CONTINUE TO MONITOR.
--- NOTE | 2017-08-20 09:00 | NUR ---
RESTRAINTS REMOVED AT THIS TIME. PT VERBALIZED UNDERSTANDING OF CONSEQUENCES OF PULLING TUBES AND RISK TO HIS OWN HEALTH. PT HAS DEMONSTRATED APPROPRIATE BEHAVIOR.
--- NOTE | 2017-08-20 11:25 | NUR ---
DR JONES AT BEDSIDE TO ASSESS PT. UPDATED ON PT STATUS, QUESTIONS ANSWERED.
--- NOTE | 2017-08-20 14:30 | NUR ---
REPORT GIVEN TO PARADISE BONNER. ALL CARE ENDORSED.
--- NOTE | 2017-08-20 14:45 | NUR ---
PT RECD FROM ICU BY BED AND ACCOMPANIED BY ICU STAFF X2 AND CIM GUARDS X2. PT IS OX4, NO SOB AT RM AIR, DENIES ANY CHEST PAIN OR OTHER DISCOMFORT. TRACE EDEMA ON BUE AND BLE. ABD IS SOFT AND NONTENDER; BOWEL SOUNDS PRESENT X4 QUADS. RT FEMORAL TLC INTACT, SL, AND WITH CDI DSG. ALL PORTS FLUSHED WELL. BRICENO TO GRAVITY DRAINING DARK ORANGE TO BAG. SAFETY AND FALL PRECAUTION REINFORCED. PT ORIENTED TO UNIT AND DEVICES. WILL CONTINUE TO MONITOR STATUS.
--- NOTE | 2017-08-20 16:35 | NUR ---
PT SATURATION 88%-91% WHILE ASLEEP, PT WAS PLACED ON N/C 2 L/MIN AT THIS TIME.
--- NOTE | 2017-08-20 18:00 | NUR ---
PT IS HAVING A BIG LIQUID BM, WITH YELLOW STOOLS AT THIS TIME
--- NOTE | 2017-08-20 18:43 | NUR ---
REMAIN OX4. NO SOB AND NO ACUTE CHANGES IN STATUS.
--- NOTE | 2017-08-20 19:31 | NUR ---
RECEIVED PT FROM [facility] SHIFT NURSE. PT AOX4. TELE #26, NSR. DENIES CP/PRESSURE. PULSES PRESENT, TRACE EDEMA BUE, BLE. LUNG SOUNDS CLEAR, ON 2L NC. DENIES SOB/DIFICULTY BREATHING. BOWEL SOUNDS ACTIVE. BRICENO CATH IN PLACE, DARK ORANGE OUTPUT NOTED. GENERALIZED WEAKNESS. BRUISES BUE. R. FEMORAL CENTRAL LINE IN PLACE, INTACT AND PATENT. BED IN LOWEST POSITION. CALL LIGHT WITHIN REACH. WILL CONTINUE TO MONITOR.
--- NOTE | 2017-08-20 21:20 | NUR ---
PT REFUSED LACTULOSE, INFORMED PT ABOUT IMPORTANCE OF THE MEDICATION. REFUSAL TO PERMIT MEDICAL TREATMENT FORM SIGNED BY PT. WILL CONTINUE TO MONITOR.
--- NOTE | 2017-08-21 02:50 | NUR ---
PT RESTING IN BED. RR EVEN AND UNLABORED. NO ACUTE DISTRESS NOTED. CALL LIGHT WITHIN REACH. BED IN LOWEST POSITION. WILL CONTINUE TO MONITOR.
[2017-08-21 05:55] VITALS: BP 100/43
--- NOTE | 2017-08-21 07:46 | NUR ---
A+OX4, COMPLAINING OF BACK PAIN, STATES TYLENOL DOES NOT HEMP HIM, NO RESPIRATORY DISTRESS NOTED, TELE 26, PULSES MODERATE AND EQUAL, TRACE BUE, BLE, LUNG SOUNDS CTA, 2L NC, BOWEL SOUNDS ACTIVE, BRICENO DRAINING WITH URSZULA COLORED URINE, GENERALIZED WEAKNESS, USES WALKER AT CIM, BRUISES BUE, REDNESS ON CHEEKS, R FEMORAL CENTRAL LINE WITH NS @ 20 ML/HR, SITE WNL.
--- NOTE | 2017-08-21 08:31 | NUR ---
PT AMBULATED TO BATHROOM AND BACK TO BED WITH ASSSITANCE, PT HAD LARGE BM, NO RESPIRATORY DISTRESS NOTED, PT REQUESTING STRONGER PAIN MEDS, PER CHARGE NURSE, PT IS DRUG SEEKER. GUARDS AT BEDSIDE.
[2017-08-21 09:39] VITALS: BP 93/41
--- NOTE | 2017-08-21 09:40 | NUR ---
PT RUDE, REFUSING TO TAKE TYLENOL FOR PAIN AND REFUSING LACTULOSE. BP LOW 93/41. GUARDS AT BEDSIDE.
--- NOTE | 2017-08-21 09:57 | NUR ---
DR JONES NOTIFIED OF BP 93/41 AND THAT PT IS REFUSING LACTULOSE. DR JONES ALSO NOTIFIED THAT PT REQUESTING STRONGER PAIN MEDICINE AND DR JONES DENIED ANYTHING STRONGER THAN TYLENOL.
--- NOTE | 2017-08-21 11:19 | NUR ---
PT RESTING IN BED, HAVING A NOSE BLEED, ICE PACK AND TISSUE PLACED ON NOSE WITH PRESSURE, NOSE BLEED STOPPED. PT REPORTS HE HAS FREQUENT NOSE BLEEDS. NO RESPIRATORY DISTRESS NOTED.
--- NOTE | 2017-08-21 12:06 | NUR ---
PT TEARFUL, EMOTIONAL, AND ANGRY ABOUT NOT RECEIVING STRONGER PAIN MEDS. PT COMFORTED BY NURSE, GIVEN TISSUE BOX TO WIPE NURSE. GUARDS AT BEDSIDE.
[2017-08-21 13:34] VITALS: BP 99/48
--- NOTE | 2017-08-21 13:44 | NUR ---
DR JONES IN TO SEE THE PT.
--- NOTE | 2017-08-21 14:06 | NUR ---
PT GIVEN TYLENOL #3 FOR BACK PAIN AND GENERALIZED DISCOMFORT, PT NOW AGRREEING TO TAKE LACTULOSE. NO RESPIRATORY DISTRESS NOTED. GUARDS AT BEDSIDE.
--- NOTE | 2017-08-21 15:43 | NUR ---
PT RESTING IN BED, NO RESPIRATORY DISTRESS NOTED, REQUESTING NEXT PRN PAIN MED TYLENOL #3 SOON ITS DUE. GUARDS AT BEDSIDE. PT CONTINUES TO BE ANGRY AND RUDE.
[2017-08-21 16:45] VITALS: BP 119/47
--- NOTE | 2017-08-21 17:38 | NUR ---
PT RESTING IN BED, COMPLAINING THAT THE FOOD IS HORRIBLE, COMPLAINING OF BACK PAIN AND GENERALIZED DISCOMFORT, STATES CAN WAIT UNTIL NEXT PRN PAIN MED, NO RESPIRATORY DISTRESS NOTED, GAURDS AT BEDSIDE.
--- NOTE | 2017-08-21 18:02 | NUR ---
PT RESTING IN BED, COMPLAINING OF 9/10 BACK PAIN AND DISCOMFORT, TYLENOL #3 GIVEN, BRICENO CARE PERFORMED, CHG MILY WASH PERFORMED, NO RESPIRATORY DISTRESS NOTED.
--- NOTE | 2017-08-21 18:29 | NUR ---
PT RESTING IN BED, NO RESPIRATORY DISTRESS NOTED. CENTRAL LINE DRESSING BLOODY. CENTRAL LINE DRESSING CLEANED AND CHANGED.
--- NOTE | 2017-08-21 19:25 | NUR ---
RECEIVED THIS CIM PATIENT REPORT FROM HA HWANG AT BEDSIDE, SEEN IN BED AAOX3, BREATHING EASY AND EVEN NOTED ON 2LPM N/C, STS HAVING BACK PAIN, PLAN OF CARE DISCUSSED, NEXT DUE TYLENOL#3 INFORMED, PATIENT VERBALIZED UNDERSTANDING. TLC TO RIGHT FEMORAL WITH DRSG CDI. NS INFUSING TO [place]ITE [place] INFUSING WELL AT 20ML/HR. BSC AT BEDSIDE PROVIDED. CALL LIGHT PLACED WITHIN EASY REACH. SIDERAILS UP X2. CORRECTIONAL OFFICERS AT BEDSIDE.
[2017-08-21 21:22] VITALS: BP 102/44
--- NOTE | 2017-08-22 00:51 | NUR ---
TELENOL#3 2TABS PO GIVEN FOR BACK PAIN, WILL CONTINUE TO MONITOR.
--- NOTE | 2017-08-22 01:35 | NUR ---
RESTING WITH EYES CLOSE. NO ANY DISTRESS NOTED.
--- NOTE | 2017-08-22 03:24 | NUR ---
ASSISTED BY FILEMON MONTGOMERY TO BSC. HAD WATERY BM X1.
--- NOTE | 2017-08-22 05:16 | NUR ---
NO ANY DISTRESS THROUGHOUT SHIFT. VSS. TYLENOL#3 GIVEN X3 FOR BACK PAIN WITH GOOD RELIEF. TLC TO RIGHT FEMORAL WITH DRSG CDI, ALL PORTS FLUSHED PATENT. HAD WATERY BM X1. IVF NS AT 20ML/HR INFUSING WELL.
[2017-08-22 06:15] VITALS: BP 99/44
[2017-08-22 06:31] LABS: BASOPHIL % 0.5 % (0-2)
[2017-08-22 06:39] LABS: PLATELET COUNT 52 x10^3mcL (130-400); RED CELL DISTRIBUTION WIDTH 15.4 % (11.5-14.5)
[2017-08-22 06:53] LABS: CALCIUM 7.4 mg/dL (8.5-10.1); CARBON DIOXIDE 23.7 mmol/L (21-32); CHLORIDE SERUM 106 mmol/L (98-107); CREATININE SERUM 0.9 mg/dL (0.7-1.3); GFR1 > 60 mL/min; GLUCOSE SERUM 91 mg/dL (74-106); POTASSIUM SERUM 3.9 mmol/L (3.5-5.1); SODIUM SERUM 135 mmol/L (136-145)
--- NOTE | 2017-08-22 07:20 | NUR ---
BEDSIDE REPORT RECEIVED FROM [facility] SHIFT NURSE AT THIS TIME. PATIENT AWAKE, ALERT, NO SIGNS OF DISTRESS NOTED. GUARDS X2 AT BEDSIDE, ALL SAFETY MEASURES IN PLACE, WILL CONTINUE TO MONITOR.
[2017-08-22 07:35] VITALS: BP 96/57
--- NOTE | 2017-08-22 07:35 | NUR ---
PATIENT AWAKE, ALERT, SITTING UP IN BED, NO SIGNS OF DISTRESS NOTED. DENIES CHEST PAIN, NO DIZZINESS, TELE# 26, HR 64. ON ROOM AIR, BRICENO CATHETER TO GRAVITY WITH URSZULA URINE. ECCHYMOSIS TO BUE, REDNESS TO BILATERAL CHEEKS, SKIN INTACT. NS INFUSING TO RIGHT FEMORAL AT 20 ML/HR, DRESSING CDI. HAND CUFF IN PLACE TO RIGHT ANKLE, CIRCULATION INTACT. ALL SAFETY MEASURES IN PLACE, GUARDS X2 AT BEDSIDE, WILL CONTINUE TO MONITOR.
--- NOTE | 2017-08-22 09:15 | NUR ---
PATIENT AWAKE, ALERT, SITTING UP IN BED. MEDICATED PRN (SEE EMAR) FOR BACK PAIN 03/12. ALL SAFETY MEASURES IN PLACE, WILL CONTINUE TO MONITOR.
[2017-08-22 09:47] VITALS: BP 112/55
--- NOTE | 2017-08-22 10:38 | NUR ---
BRICENO CATHETER REMOVED AT THIS TIME, -75ML OF URINE OUT, CATHETER INTACT, TOLERATED WELL, WILL CONTINUE TO MONITOR.
--- NOTE | 2017-08-22 13:00 | NUR ---
PATIENT AWAKE, ALERT, MEDICATED FOR PRN PAIN (SEE EMAR) TO LOWER BACK, ACHING, INTERMITTENT. ALL NEEDS ATTENDED TO, GUARDS X2 AT BEDSIDE, WILL CONTINUE TO MONITOR.
[2017-08-22 13:53] VITALS: BP 112/55
[2017-08-22 14:09] VITALS: BP 102/48
--- NOTE | 2017-08-22 15:12 | NUR ---
DISCHARGE TEACHING PROVIDED AT THIS TIME. PATIENT AWAKE, ALERT, NO SIGNS OF DISTRESS NOTED. INFORMATION PACKET GIVEN TO GUARD, WILL CONTINUE TO MONITOR.
--- NOTE | 2017-08-22 15:27 | NUR ---
Follow-up Nutrition Assessment Dx:Hepatic encephalopathy, ALOC Labs: (08/22) Na:135L, Ca:7.4L, WBC:4.3L, H/H:9.3/27L (08/19) Ammonia:39H, trending down Meds: Aldactone, Cephulac, Folic acid, Phenegran, Prilosec, Senokot, Vitamin B1. Diet: Regular PO intake:08/21: B:100%, L:100%, D:100% Weights: 08/18:179#, 08/19:184#, 08/22:unable to weigh pt due to bedscale not working Skin: intact Edema: +2 pitting edema to BLE Last BM: 08/22 Per bed huddle this morning, pt was extubated over the weekend. Pt will stay due to c/o back pain and an x-ray will be ordered. During visit, observed pt laying in bed. Pt reports to having a good appetite with no c/o N/V/D/C. Pt said he will discharge back to custodial today. Estimated Nutritional Needs unchanged from prior assessment:actual body weight 81kg Energy: 2430-2835kcal/day (30-35kcal/kg for chronic cirrhossis) Protein: 48-65g/day (0.-0.8g/kg for elevated ammonia levels) Fluid:1620-2025ml/day (20-25ml/kg for edema) or per doctor Nutrition Diagnosis 1. Altered nutrition labs related to ESLD as evidenced by elevated ammonia levels:198 (ongoing but improving) Intervention 1. Recommend low sodium 50g protein restriction due to pt with elevated ammonia levels and for +2 pitting edema to BLE. Monitor/Evaluate Previous goal: Intake via nutrition support to meet at least 75% est needs (met, pt on oral diet) Goal: PO intake at least 75% of estimated needs, ammonia WNL Monitor: PO intake, Labs (ammonia), GI function F/U in 3-5 days as moderate risk: 08/25-
--- NOTE | 2017-08-22 15:29 | NUR ---
1. Recommend low sodium 50g protein restriction due to pt with elevated ammonia levels and for +2 pitting edema to BLE.
--- NOTE | 2017-08-22 15:43 | NUR ---
FEMORAL LINE DISCONTINUED AT THIS TIME, CATHETER INTACT, TOLERATED WELL.
== END 2017-08-22 17:48 | disposition other institution (70) | DRG 208 ==
LOC: ED 01:59 → IC 04:13 → DU 04:13 → IC 08-16 15:47 → MU 08-16 15:59 → IC 08-16 16:00 → DU 08-20 14:44 → IC 08-20 15:08 → MU 08-20 15:18
PROVIDERS: Emergency Medicine; ADMIT Internal Medicine
PROC: 5A1945Z Respiratory Ventilation, 24-96 Consecutive Hours (ICD-10-PCS; principal; 2017-08-16)
PROC: 0BH17EZ Insertion of Endotracheal Airway into Trachea, Via Natural or Artificial Opening (ICD-10-PCS; 2017-08-16)
PROC: 06HM33Z Insertion of Infusion Device into Right Femoral Vein, Percutaneous Approach (ICD-10-PCS; 2017-08-16)
PROC: B54BZZA Ultrasonography of Right Lower Extremity Veins, Guidance (ICD-10-PCS; 2017-08-16)
DX: J96.00 Acute respiratory failure, unspecified whether with hypoxia or hypercapnia (principal); G93.41 Metabolic encephalopathy; K72.90 Hepatic failure, unspecified without coma; F25.9 Schizoaffective disorder, unspecified; K70.30 Alcoholic cirrhosis of liver without ascites; B18.2 Chronic viral hepatitis C; F12.10 Cannabis abuse, uncomplicated; F15.10 Other stimulant abuse, uncomplicated; D64.9 Anemia, unspecified; J44.9 Chronic obstructive pulmonary disease, unspecified; D69.59 Other secondary thrombocytopenia; Z91.14 Patient's other noncompliance with medication regimen; Z88.8 Allergy status to other drugs, medicaments and biological substances
CPT/HCPCS: 31500; 36556; 36600; 82962; 83880; A4628; C9113; G0480; J0690; J1940; J2250; J2270; J2354; J2405; J2550; J2704; J2710; J3490; J7030; J7620; Q0092; Q9967

== ENCOUNTER 2017-09-18 08:38 | Inpatient (IN) | payer OTHER ==
[~2017-09-18] VITALS: Ht 172.7 cm; Wt 81.8 kg
[~2017-09-18 08:38] MED LIST changes: +LACTULOSE10 GM/152 PO
[2017-09-18 08:42] VITALS: Ht 172.7 cm; Wt 81.8 kg
[2017-09-18 09:13] LABS: BASOPHIL % 0.3 % (0-2)
[2017-09-18 09:15] LABS: PLATELET COUNT 56 x10^3mcL (130-400); RED CELL DISTRIBUTION WIDTH 16.3 % (11.5-14.5)
[2017-09-18 09:24] LABS: CALCIUM 7.9 mg/dL (8.5-10.1); CARBON DIOXIDE 21.4 mmol/L (21-32); CHLORIDE SERUM 112 mmol/L (98-107); CREATININE SERUM 0.9 mg/dL (0.7-1.3); GFR1 > 60 mL/min; GLUCOSE SERUM 115 mg/dL (74-106); POTASSIUM SERUM 4.1 mmol/L (3.5-5.1); SODIUM SERUM 142 mmol/L (136-145)
[2017-09-18 09:28] LABS: ALKALINE PHOSPHATASE 148 U/L (46-116); ALT/SGPT 26 U/L (16-63); AST/SGOT 57 U/L (15-37); BILIRUBIN TOTAL 1.96 mg/dL (0.20-1.00)
[2017-09-18 09:30] LABS: ALBUMIN 2.3 g/dL (3.4-5.0); TOTAL PROTEIN, SERUM 6.1 g/dL (6.4-8.2)
[2017-09-18 10:15] LABS: AMPHETAMINE QUAL UR NONE DETECTED (NEG <=1000)
[2017-09-18 10:31] LABS: UA SPECIFIC GRAVITY 1.015 (1.005-1.035)
[2017-09-18 10:32] LABS: microscopic required? YES; urine erythrocyte 1+ (NEGATIVE)
[2017-09-18 13:39] VITALS: BP 126/62
[2017-09-18 13:52] VITALS: BP 12/64
[2017-09-18 16:54] VITALS: BP 132/78
[2017-09-18 20:46] VITALS: BP 145/78
[2017-09-19 05:47] VITALS: BP 134/73
[2017-09-19 08:14] VITALS: BP 132/74
[2017-09-19 12:05] VITALS: BP 117/53
[2017-09-19 12:42] VITALS: BP 132/74
== END 2017-09-19 16:17 | disposition other institution (70) | DRG 441 ==
LOC: ED 08:38 → DU 09:50
PROVIDERS: Emergency Medicine; ADMIT Internal Medicine
DX: K72.90 Hepatic failure, unspecified without coma (principal); G93.41 Metabolic encephalopathy; K74.60 Unspecified cirrhosis of liver; B18.2 Chronic viral hepatitis C; Z88.8 Allergy status to other drugs, medicaments and biological substances; I10 Essential (primary) hypertension
CPT/HCPCS: 83880; G0480; J1940; J2270; J3411; J3490; J7030